=== PATIENT | male | born 1955 | race Caucasian/White ===

== ENCOUNTER 2016-10-21 03:43 | Emergency (ER) | payer OTHER ==
[2016-10-21] MEDS ORDERED: LORazepam 1 MG Tab PO ONE (04:01)
[2016-10-21] MEDS ORDERED: Albuterol/Ipratropium 3.0-0.5 MG/3 ML Neb Soln NEB ONE (04:01)
[2016-10-21] MEDS ORDERED: Ketorolac 60 MG/2 ML SDV IM ONE (04:07)
[2016-10-21] MEDS ORDERED: Diphtheria,Pertussis(Acell),Tetanus Vaccine 0.5 ML SDV IM ONE (04:07)
[2016-10-21] MEDS ORDERED: predniSONE 10 MG Tab PO ONE (04:48)
[2016-10-21] MEDS ORDERED: traMADol 50 MG Tab PO ONE (04:48)
[2016-10-21 06:02] VITALS: BP 155/76
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
== END 2016-10-21 05:00 | disposition home or self-care (01) ==
LOC: FB.ED 03:43
DX: T20.16XA Burn of first degree of forehead and cheek, initial encounter (principal); T20.12XA Burn of first degree of lip(s), initial encounter; J44.1 Chronic obstructive pulmonary disease with (acute) exacerbation; F41.9 Anxiety disorder, unspecified; X08.8XXA Exposure to other specified smoke, fire and flames, initial encounter
CPT/HCPCS: 90715; 94640; 96372; 99283; A9270; J1885; J7620

== ENCOUNTER 2016-10-22 00:20 | Emergency (ER) | payer OTHER ==
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
[2016-10-22 02:15] VITALS: BP 142/72
--- NOTE | 2016-10-24 11:22 | CR ---
INDICATION: Leg swelling, CHF. CHEST: A single AP upright view of the chest was obtained 10/22/2016 and compared with 02/11/2016, again revealing the heart to be normal in size and shape. The aorta is minimally calcified in the arch area. Heavy markings are noted at the lung bases with blunting of the left costophrenic angle suggested. The appearance at the left costophrenic angle may be on the basis of fibrosis. Minimal pneumonia and pleuritis is difficult to exclude, however, at the left costophrenic angle. No consolidating pneumonia was identified. MTDD
== END 2016-10-22 02:15 | disposition home or self-care (01) ==
LOC: FB.ED 00:20
DX: I89.0 Lymphedema, not elsewhere classified (principal); F17.210 Nicotine dependence, cigarettes, uncomplicated; J44.9 Chronic obstructive pulmonary disease, unspecified; Z79.899 Other long term (current) drug therapy
CPT/HCPCS: 36415; 71010; 80048; 83880; 84484; 85025; 93005; 99282; 99284

== ENCOUNTER 2022-10-21 23:20 | Emergency (ER) | payer OTHER ==
[2022-10-21] MEDS ORDERED: Albuterol/Ipratropium 3.0-0.5 MG/3 ML Neb Soln NEB STA (23:21)
[2022-10-21] MEDS ORDERED: methylPREDNISolone Sodium Succinate 125 MG/2 ML SDV IM ONE (23:21)
[2022-10-21] MEDS ORDERED: Amoxicillin/Clavulanate K 875-125 MG Tab PO ONE (23:23)
[2022-10-21 23:44] VITALS: BP 152/76; PULSE 117
[2022-10-22] MEDS ORDERED: Sodium Chloride 0.9% 10 ML Syringe FLUSH PRN
[2022-10-22] MEDS ORDERED: Morphine 4 MG/ML VIAL IVPUSH ONE (00:04)
[2022-10-22 00:20] LABS: BASOPHILS ABSOLUTE AUTO 0.1 x10-3/uL (0.0-0.3); BASOPHILS PERCENT AUTO 0.8 % (0.3-3.8); EOSINOPHILS ABSOLUTE AUTO 0.3 x10-3/uL (0.0-0.6); EOSINOPHILS PERCENT AUTO 2.1 % (0.1-6.8); HEMATOCRIT 39.4 % (38.3-50.1); HEMOGLOBIN 13.5 g/dL (12.9-17.7); LYMPHOCYTES ABSOLUTE AUTO 3.9 x10-3/uL (0.5-4.5); LYMPHOCYTES PERCENT AUTO 30.6 % (15.8-45.3); MEAN CORPUSCULAR HEMOGLOBIN 32.1 pg (27.0-33.3); MEAN CORPUSCULAR HGB CONC 34.3 g/dL (28.7-35.3); MEAN CORPUSCULAR VOLUME 93.6 fL (80.8-98.7); MEAN PLATELET VOLUME 8.6 fL (6.7-11.0); MONOCYTES ABSOLUTE AUTO 1.1 x10-3/uL (0.0-1.2); MONOCYTES PERCENT AUTO 8.4 % (5.5-15.2); NEUTROPHILS ABSOLUTE AUTO 7.4 x10-3/uL (1.7-6.9); NEUTROPHILS PERCENT AUTO 58.1 % (40.3-71.8); PLATELET COUNT,PLT 237 x10(3)uL (117-477); RED BLOOD CELL COUNT 4.21 x10(6)uL (3.90-5.90); RED CELL DISTRIBUTION WIDTH 13.6 % (12.4-15.0); WHITE BLOOD CELL COUNT,WBC 12.8 x10-3/uL (3.2-10.1)
[2022-10-22 00:23] LABS: BLOOD UREA NITROGEN,BUN 20 mg/dL (7-18); BUN/CREATININE RATIO 22.2 (9-20); CALCIUM 8.6 mg/dL (8.6-10.2); CARBON DIOXIDE,CO2 32 mmol/L (21-32); CHLORIDE,CL 104 mmol/L (100-110); CREATININE 0.9 mg/dL (0.70-1.30); ESTIMATED GFR 95 mL/min (>60); GLUCOSE RANDOM 140 mg/dL (80-116); POTASSIUM,K 3.6 mmol/L (3.5-5.3); SODIUM,NA 142 mmol/L (135-145)
[2022-10-22 00:29] LABS: ALANINE AMINOTRANSFERASE,ALT 39 U/L (12-36); ALBUMIN 3.2 g/dL (3.2-4.6); ALKALINE PHOSPHATASE 79 IU/L (56-112); ASPARTATE AMNIOTRANSFERASE,AST 23 IU/L (5-25); BILIRUBIN TOTAL 0.6 mg/dL (0.1-1.3); PROTEIN TOTAL,TP 6.3 g/dL (6.0-8.0)
[2022-10-22 00:32] LABS: BASE EXCESS VENOUS,POC 5 mmol/L (-2 - 3+); PCO2 VENOUS,POC 44 mmHg (41-51); PH VENOUS,POC 7.43 pH Units (7.32-7.43)
[2022-10-22 00:36] LABS: TROPONIN I 11.7 pg/mL (4.0-60.3)
== END 2022-10-22 02:08 ==
LOC: FB.ED 23:20
DX: J44.1 Chronic obstructive pulmonary disease with (acute) exacerbation (principal); E78.5 Hyperlipidemia, unspecified; Z20.822 Contact with and (suspected) exposure to COVID-19
CPT/HCPCS: 36415; 71045; 80053; 83880; 84484; 85025; 93005; 94640; 96372; 96374; 99285-25; A9270-GY; J2270; J2930; J3490; J7620; U0002

== ENCOUNTER 2022-10-28 09:29 | Emergency (ER) | payer OTHER ==
[2022-10-28] MEDS ORDERED: LORazepam 2 MG/ML SDV IVPUSH ONE ×2 (09:39→09:44)
[2022-10-28] MEDS ORDERED: Furosemide 20 MG Tab PO STA (14:23)
[2022-10-28] MEDS ORDERED: Carvedilol 12.5 MG Tab PO STA (14:23)
[2022-10-28] MEDS ORDERED: Losartan 25 MG Tab PO STA (14:23)
[2022-10-28] MEDS ORDERED: Non-Formulary Medication 1 Each (Albuterol Sulfate [Proair Digihaler] 90 MCG Aer.Pw.Bas) IH PRN (14:27)
[2022-10-28] MEDS ORDERED: Naproxen 500 MG Tab PO PRN (14:27)
[2022-10-28] MEDS ORDERED: Nicotine 21 MG/24 Hr Patch TRDERM ONE (14:27)
[2022-10-28] MEDS ORDERED: hydrOXYzine HCl 25 MG Tab PO PRN (14:27)
[2022-10-28] MEDS ORDERED: Non-Formulary Medication 1 Each (Fluticasone Propion/Salmeterol [Fluticasone-Salmeterol 25 INH SCH (14:30)
[2022-10-28] MEDS ORDERED: Nicotine 21 MG/24 Hr Patch TRDERM SCH (14:30)
[2022-10-28 14:47] VITALS: BP 172/115; PULSE 106
[2022-10-28] MEDS ORDERED: guaiFENesin 200 MG Tab PO SCH (21:00)
[2022-10-28] MEDS ORDERED: BACITRACIN TOP SCH (21:00)
[2022-10-28] MEDS ORDERED: Carvedilol 12.5 MG Tab PO SCH (21:00)
[2022-10-28] MEDS ORDERED: Non-Formulary Medication 1 Each (Magnesium Oxide [Magnesium Oxide] 420 MG Tablet) PO SCH (21:00)
[2022-10-29] MEDS ORDERED: MULTIVIT MIN PO SCH (09:00)
[2022-10-29] MEDS ORDERED: [UNRECOGNIZED DRUG - OTHER] PO SCH (09:00)
[2022-10-29] MEDS ORDERED: FOLIC AC PO SCH (09:00)
[2022-10-29] MEDS ORDERED: Cholecalciferol (Vitamin D3) 25 MCG Tab PO SCH (09:00)
[2022-10-29] MEDS ORDERED: Losartan 25 MG Tab PO SCH (09:00)
[2022-10-29] MEDS ORDERED: Fish Oil/Omega-3 Fatty Acids 1 Gm Cap PO SCH (09:00)
[2022-10-29] MEDS ORDERED: IRON FUM PO SCH (09:00)
[2022-10-29] MEDS ORDERED: Furosemide 40 MG Tab PO SCH (09:00)
[2022-10-29] MEDS ORDERED: Ascorbic Acid 500 MG Tab PO SCH (09:00)
[2022-10-29] MEDS ORDERED: Nicotine 21 MG/24 Hr Patch TRDERM SCH (14:30)
== END 2022-10-28 15:10 | disposition home or self-care (01) ==
LOC: FB.ED 09:29
DX: R59.0 Localized enlarged lymph nodes (principal); J44.9 Chronic obstructive pulmonary disease, unspecified; F17.210 Nicotine dependence, cigarettes, uncomplicated; Z79.51 Long term (current) use of inhaled steroids
CPT/HCPCS: 71045; 96374; 99285; A9270; J2060

== ENCOUNTER 2025-01-30 12:54 | Observation (INO) | payer OTHER ==
[2025-01-30] MEDS: Ondansetron 4 MG/2 ML SDV ONE (13:07)
[2025-01-30 13:56] LABS: BASOPHILS ABSOLUTE AUTO 0.2 x10-3/uL (0.0-0.3); BASOPHILS PERCENT AUTO 1.3 % (0.3-3.8); EOSINOPHILS ABSOLUTE AUTO 0.5 x10-3/uL (0.0-0.6); EOSINOPHILS PERCENT AUTO 3.5 % (0.1-6.8); LYMPHOCYTES ABSOLUTE AUTO 4.5 x10-3/uL (0.5-4.5); LYMPHOCYTES PERCENT AUTO 35.0 % (15.8-45.3); MEAN PLATELET VOLUME 9.2 fL (6.7-11.0); MONOCYTES ABSOLUTE AUTO 1.1 x10-3/uL (0.0-1.2); MONOCYTES PERCENT AUTO 8.3 % (5.5-15.2); NEUTROPHILS ABSOLUTE AUTO 6.8 x10-3/uL (1.7-6.9); NEUTROPHILS PERCENT AUTO 51.9 % (40.3-71.8); PLATELET COUNT,PLT 252 x10(3)uL (117-477); RED BLOOD CELL COUNT 5.19 x10(6)uL (3.90-5.90); RED CELL DISTRIBUTION WIDTH 13.7 % (12.4-15.0); WHITE BLOOD CELL COUNT,WBC 13.0 x10-3/uL (3.2-10.1)
[2025-01-30 14:01] LABS: BASE EXCESS VENOUS,POC 7 mmol/L (-2 - 3+); PCO2 VENOUS,POC 51 mmHg (41-51); PH VENOUS,POC 7.43 pH Units (7.32-7.43)
[2025-01-30 14:03] LABS: BLOOD UREA NITROGEN,BUN 15 mg/dL (7-18); CARBON DIOXIDE,CO2 35 mmol/L (21-32); CHLORIDE,CL 102 mmol/L (100-110); CREATININE 1.2 mg/dL (0.70-1.30); ESTIMATED GFR 66 mL/min (>60); GLUCOSE RANDOM 134 mg/dL (80-116); POTASSIUM,K 3.9 mmol/L (3.5-5.3); SODIUM,NA 143 mmol/L (135-145)
[2025-01-30 14:09] LABS: A/G RATIO 1.1; ALANINE AMINOTRANSFERASE,ALT 60 U/L (12-36); ASPARTATE AMNIOTRANSFERASE,AST 43 IU/L (5-25); BILIRUBIN TOTAL 0.5 mg/dL (0.1-1.3); PROTEIN TOTAL,TP 7.3 g/dL (6.0-8.0)
[2025-01-30] MEDS: Ketorolac 30 MG/ML SDV IVPUSH ONE (14:13)
[2025-01-30] MEDS ORDERED: Magnesium Hydroxide 400 MG/5 ML Susp 30 ML Cup PO PRN ×2 (16:38→16:44)
[2025-01-30] MEDS ORDERED: Non-Formulary Medication 1 Each (Mag Hydrox/Al Hydrox/Simeth [Geri-Lanta] 355 ML Oral.Susp PO PRN (16:44)
[2025-01-30] MEDS ORDERED: Non-Formulary Medication 1 Each (Magnesium Oxide [Magnesium Oxide] 420 MG Tablet) PO SCH (21:00)
[2025-01-31 06:58] LABS: BASOPHILS ABSOLUTE AUTO 0.1 x10-3/uL (0.0-0.3); BASOPHILS PERCENT AUTO 0.7 % (0.3-3.8); EOSINOPHILS ABSOLUTE AUTO 0.2 x10-3/uL (0.0-0.6); EOSINOPHILS PERCENT AUTO 2.4 % (0.1-6.8); LYMPHOCYTES ABSOLUTE AUTO 3.3 x10-3/uL (0.5-4.5); LYMPHOCYTES PERCENT AUTO 33.4 % (15.8-45.3); MEAN PLATELET VOLUME 9.2 fL (6.7-11.0); MONOCYTES ABSOLUTE AUTO 1.0 x10-3/uL (0.0-1.2); MONOCYTES PERCENT AUTO 9.9 % (5.5-15.2); NEUTROPHILS ABSOLUTE AUTO 5.3 x10-3/uL (1.7-6.9); NEUTROPHILS PERCENT AUTO 53.6 % (40.3-71.8); PLATELET COUNT,PLT 200 x10(3)uL (117-477); RED BLOOD CELL COUNT 4.64 x10(6)uL (3.90-5.90); RED CELL DISTRIBUTION WIDTH 13.7 % (12.4-15.0); WHITE BLOOD CELL COUNT,WBC 9.8 x10-3/uL (3.2-10.1)
[2025-01-31 07:09] LABS: BLOOD UREA NITROGEN,BUN 20 mg/dL (7-18); CARBON DIOXIDE,CO2 34 mmol/L (21-32); CHLORIDE,CL 104 mmol/L (100-110); CREATININE 1.3 mg/dL (0.70-1.30); EST CRCL DRUG DOSING (CG) 54.38 mL/min; ESTIMATED GFR 60 mL/min (>60); GLUCOSE RANDOM 115 mg/dL (80-116); POTASSIUM,K 4.0 mmol/L (3.5-5.3); SODIUM,NA 143 mmol/L (135-145)
[2025-01-31] MEDS ORDERED: Aluminum Hydroxide/Magnesium Hydroxide Susp 30 ML Cup PO PRN (07:36)
[2025-01-31] MEDS ORDERED: FENOFIBRATE 54 MG PO SCH (09:00)
[2025-01-31] MEDS ORDERED: Naloxone 0.4 MG/ML SDV IVPUSH PRN (09:59)
[2025-01-31] MEDS: HYDROmorphone 2 MG/ML SDV IVPUSH PRN (10:07)
[2025-01-31 12:15] VITALS: BP 101/65; PULSE 81
== END 2025-01-31 14:00 | disposition left against medical advice (07) ==
LOC: FB.ED 12:54 → FB.MS 16:46
PROVIDERS: ADMIT Family Medicine; ATTEND Internal Medicine
DX: S06.0X0A Concussion without loss of consciousness, initial encounter (principal); S00.81XA Abrasion of other part of head, initial encounter; S00.31XA Abrasion of nose, initial encounter; J44.9 Chronic obstructive pulmonary disease, unspecified; R55 Syncope and collapse; D72.829 Elevated white blood cell count, unspecified; F17.210 Nicotine dependence, cigarettes, uncomplicated; Z99.81 Dependence on supplemental oxygen; Z79.899 Other long term (current) drug therapy; Z79.890 Hormone replacement therapy; W19.XXXA Unspecified fall, initial encounter
CPT/HCPCS: 36415; 70450; 70486; 71045; 72125; 80048; 80053; 83605; 84484; 85025; 86140; 87040; 93005; 96372; 96374; 96375; 97161; 97165; 99285; A9270; G0378; J1171; J1650; J1885; J2405; J7620; 93010; 99223; 99239

== ENCOUNTER 2025-02-02 02:30 | Emergency (ER) | payer OTHER ==
[2025-02-02 04:34] VITALS: BP 148/62; PULSE 88
== END 2025-02-02 04:34 | disposition home or self-care (01) ==
LOC: FB.ED 02:30
DX: R93.0 Abnormal findings on diagnostic imaging of skull and head, not elsewhere classified (principal); J44.9 Chronic obstructive pulmonary disease, unspecified; F17.200 Nicotine dependence, unspecified, uncomplicated; Z79.51 Long term (current) use of inhaled steroids; Z79.890 Hormone replacement therapy; Z79.899 Other long term (current) drug therapy
CPT/HCPCS: 70450; 99284